=== PATIENT | male | born 1930 | race Caucasian/White ===

== ENCOUNTER → 2016-12-31 | Outpatient (CLI) | payer MEDICARE, OTHER ==
--- NOTE | 2017-01-02 08:13 | XCELERA REPORT ---
[address] [address] Lower Extremity Arterial Evaluation Name: CAMERON RITTER Age: 86 yrs Gender: Male : 1930 Patient Status: Outpatient Patient Location: Study Date: 12/31/2016 02:20 PM Procedure: A color flow and duplex scan of the lower extremity arteries was performed bilaterally with velocity and waveform anaylsis. Reason For Study: CLAUDICATION Ordering Physician: DEIDRE VERDUGO Performed By: Len Abarca Measurements and Calculations Right Left INSPECTOR ELEVATORS PSV 179.7 122.2 cm/sec Prox PFA PSV -133.6 -330.0 cm/sec Dist Pop A PSV 40.2 cm/sec Dist LINDA PSV 28.6 69.1 cm/sec Dist Greg A PSV -52.5 -90.4 cm/sec Vineet Pedis PSV -106.4 41.0 cm/sec Right Side Arterial Evaluation Normal velocity, waveform and triphasic flow are present, in the Common Femoral artery. 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 Occluded Popliteal , Anterior and Posterior Tibial arteries. Reconstitution in the distal Anterior Tibial artery. Apparent patent Fem- Peroneal artery bypass. The ankle-brachial index was not done.. 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 Left Side Arterial Evaluation Normal velocity, waveform and triphasic flow are present, in the Common Femoral artery. Biphasic, stenotic Deep Femoral artery. Occluded Femoral artery with biphasic signal in a Fem Popliteal bypass graft. Reconstituted Popliteal artery from bypass., triphasic signal. , Occluded Posterior Tibial artery. . Biphasic Anterior Tibial with fairly well maintained velocity. The ankle-brachial index was not done.. 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 Interpretation Summary Moderate hemodynamically significant lesions in the bilateral lower extremities, on duplex imaging, at rest. Findings based on patent bypass grafts, Apparently Femero-Peroneal on right, Femero Popliteal on left. : DEIDRE VERDUGO > Pierce Disla
== END ==
LOC: SP 13:55
PROVIDERS: ATTEND Internal Medicine Cardiovascular Disease
DX: I73.9 Peripheral vascular disease, unspecified (principal)
CPT/HCPCS: 93925

== ENCOUNTER → 2017-02-20 | Outpatient (CLI) | payer MEDICARE, OTHER | LOC: SP 10:35 | PROVIDERS: ATTEND Podiatrist Foot & Ankle Surgery | DX: I73.9 Peripheral vascular disease, unspecified (principal) ==